=== PATIENT | female | born 1965 | race Caucasian/White ===

== ENCOUNTER → 2023-02-17 16:27 | Outpatient (BNVA) | payer SELFPAY | PROVIDERS: PCP Physician Assistant Medical; Visit Provider Internal Medicine Cardiovascular Disease | DX: R06.02 Shortness of breath (principal); I31.9 Disease of pericardium, unspecified; I45.10 Unspecified right bundle-branch block; R53.83 Other fatigue; E03.9 Hypothyroidism, unspecified | CPT/HCPCS: 36415; 83880; 84484 ==